=== PATIENT | male | born 1955 | race Caucasian/White ===

== ENCOUNTER 2016-09-04 10:32 | Emergency (ER) | payer MEDICARE, OTHER ==
--- NOTE | ~2016-09-04 | CR72 ---
[facility] A Service of [facility] RADIOLOGY TEXT RESULTS PATIENT: JESSICA CHRISTOPHER LOCATION: [facility] : 57 UNIT #: [id number] AGE: [address]: Aman Weldon MD SEX: M ORDER DR: [id number] [facility] [address] [place], [place] [address] [id number] MR#: [id number] #: [id number] NAME: JESSICA CHRISTOPHER : 1955 SEX: M STUDY DATE/TIME: 09/04/2016 09:49 UNIT: [facility] ROOM: STUDY DESCRIPTION: CR Chest Single View Portable Attending Physician: Aman Weldon M.D. Referring Physician: Self Referral-Refer Use Only Ordering Physician: Aman Weldon M.D. Primary Care Physician: Primary Care Physician No MEDICAL IMAGING REPORT This report is preliminary unless electronic signature is present EXAM Chest portable, 09/04/2016 09:49 hours HISTORY 61-year-old man complaining of 1 day history of shortness of air and fatigue. The patient took someone else's heart medication 1 day prior to exam. COMPARISON 05/06/2016 FINDINGS Portable upright chest demonstrates heart size at the upper limits of normal unchanged from 05/06/2016. There is a mildly tortuous atherosclerotic aorta without change. The pulmonary vascularity is normal. The lungs are clear and there are no effusions. IMPRESSION Stable mild prominence of the cardiac size with tortuous atherosclerotic aorta. Lungs are mildly hyperinflated but clear. There are no effusions. Dictated by... Tiffany Jones M.D. THIS IS AN ELECTRONICALLY VERIFIED REPORT Tiffany Jones M.D. at 09/04/2016 2:30 PM GRAYSON/rhina TD: 09/04/2016 12:30 JOB #: [id number] MEDICAL IMAGING REPORT Page 1 of 1 COPY
--- NOTE | ~2016-09-04 | EKG ---
PATIENT: JESSICA CHRISTOPHER UNIT #: [id number] Ventricular Rate: 108 BPM Atrial Rate: 216 BPM QRS Duration: 106 ms Q-T Interval: 314 ms QTC Calculation(Bezet): 420 ms P [place]: 262 degrees Calculated R [place]: -74 degrees Calculated T [place]: -17 degrees Diagnosis Line: Atrial flutter with 2:1 A-V conduction Diagnosis Line: Left axis deviation Diagnosis Line: Incomplete left bundle branch block Diagnosis Line: Left ventricular hypertrophy with repolarization Diagnosis Line: abnormality Diagnosis Line: Abnormal ECG Diagnosis Line: When compared with ECG of 06-MAY-2016 19:53, Diagnosis Line: Incomplete left bundle branch block has replaced Diagnosis Line: Incomplete right bundle branch block Diagnosis Line: Confirmed by ALEXANDRE VICTOR MD ([id number]) on 09/04/2016 Diagnosis Line: 9:44:38 AM INTERPRETING MD: KAYLEIGH MARTINO
[2016-09-04 09:56] LABS: BASOPHIL# 0.1 X10e3 (0-0.3); EOSINOPHIL# 0.9 X10e3 (0-0.7); EOSINOPHIL% 12.6 % (0.0-7.0); HEMATOCRIT 43.5 % (38.0-50.0); HEMOGLOBIN 14.2 gm/dL (13.0-16.0); LYMPHOCYTE# 2.2 X10e3 (1.0-3.5); LYMPHOCYTE% 31.6 % (17.0-45.0); MEAN CELL VOLUME 98.6 FL (83-96); MEAN CORPUSCULAR HEMOGLOBIN 32.2 PG (28-34); MEAN CORPUSCULAR HGB CONC 32.6 g/dL (30-36); MEAN PLATELET VOLUME 7.7 FL (6.5-11.5); MONOCYTE# 0.6 X10e3 (0-1.0); MONOCYTE% 9.2 % (3.0-12.0); NEUTROPHIL# 3.2 X10e3 (1.5-7.1); NEUTROPHIL% 45.6 % (40-75); PLATELET COUNT 194 X10e3 (140-420); RED BLOOD COUNT 4.41 X10e (3.90-5.60)
[2016-09-04 09:57] LABS: DIFF IND NO
[2016-09-04 10:04] LABS: POC - CKMB 1.4 ng/mL (0.0-7.9); POC - TROPONIN <0.05 ng/mL (<=0.05)
[2016-09-04 10:10] LABS: PROTHROMBIN TIME (PATIENT) 10.6 SECONDS (9.6-11.5)
[2016-09-04 10:21] LABS: ALBUMIN SERUM 4.2 g/dL (3.5-5.0); BILIRUBIN, DIRECT 0.1 mg/dL (0.0-0.2); BILIRUBIN,INDIRECT 0.4 mg/dL (0.0-0.9); BILIRUBIN,TOTAL 0.5 mg/dL (0.2-2.0); BUN/CREATININE RATIO 7.85; CALCIUM SERUM 9.1 mg/dL (8.4-10.2); CREATININE SERUM 1.4 mg/dL (0.6-1.4); GLOM FILT RATE Estimated 54.2 mL/min (>60); POTASSIUM 5.2 mmol/L (3.5-5.1); PROTEIN TOTAL SERUM 7.1 g/dL (6.0-8.3)
[~2016-09-04 10:32] MED LIST: ALBUTEROL17 GM INH; ALBUTEROL20 ml INH; ASPIRIN81 MG PO; BACTRIM DS TABL1 TA1 PO; CARDIZEM60 M1 PO; CARVEDILOL6.25 MG PO; COATED ASPIRIN325 M1 PO; CORDARONE200 M1 PO; COREG6.25 MG PO; COUMADIN PO; COUMADIN2.5 MG PO; COUMADIN5 MG PO; KEFLEX PO; KETOPROFEN PO; LASIX PO; LISINOPRIL20 MG PO; LISINOPRIL5 MG PO; LOPRESSOR PO; METOPROLOL TAR25 MG PO; METOPROLOL TART25 MG PO; MUCINEX DM ER1 EACH PO; MULTI VITAMINS W1 MG PO; NICOTINE TRANSD21 MG EXT; PRINIVIL10 MG PO; PROAIR HFA8.5 GM IH; PROTONIX PO; SPIRIVA18 MCG INH; SYMBICORT80 INH; THIAMINE HCL100 MG PO; TYLENOL325 M1 PO; VICODIN 5/500 T1 TAB PO; ZESTORETIC 10-1 EACH PO; ZESTORETIC 20/11 TAB PO; ZESTRIL10 M2 PO; ZESTRIL2.5 M1 PO
[2016-09-04 10:53] LABS: URINE SOURCE CLEAN CATCH
[2016-09-04 10:57] LABS: URINE APPEARANCE CLEAR; URINE BILIRUBIN NEG (NEG); URINE BLOOD NEG (NEG); URINE COLOR YELLOW; URINE GLUCOSE NEG (NEG); URINE KETONE NEG (NEG); URINE LEUKOCYTE ESTERASE NEG (NEG); URINE NITRATE NEG (NEG); URINE PROTEIN NEG (NEG); URINE SPECIFIC GRAVITY 1.004 (1.003-1.035); URINE UROBILINOGEN 0.2 MG/DL (NEG)
[2016-09-04 11:03] LABS: CULTURE INDICATED? NO
[2016-09-04 11:09] LABS: AMPHETAMINE NEG (NEG); BARBITURATES NEG (NEG); BENZODIAZEPINES NEG (NEG); COCAINE POS (NEG); MARIJUANA NEG (NEG); OPIATES NEG (NEG); TRICYCLIC ANTIDEPRESSANTS NEG (NEG); U METHADONE NEG (NEG)
[2016-09-04 11:11] LABS: POC - CKMB 1.5 ng/mL (0.0-7.9); POC - TROPONIN <0.05 ng/mL (<=0.05)
== END 2016-09-04 13:44 | disposition home or self-care (01) ==
LOC: CED 10:32
PROVIDERS: Emergency Medicine
DX: I48.92 Unspecified atrial flutter (principal); E87.6 Hypokalemia; I11.0 Hypertensive heart disease with heart failure; I50.9 Heart failure, unspecified; R53.1 Weakness; F17.200 Nicotine dependence, unspecified, uncomplicated; Z79.899 Other long term (current) drug therapy
CPT/HCPCS: 36415; 71010; 80048; 80076; 80307; 81003; 82553; 82947; 83880; 84484; 85025; 85610; 93005; 96374; 99284; J1940

== ENCOUNTER 2016-12-11 16:16 | Inpatient (IN) | payer MEDICARE, OTHER ==
[~2016-12-11] VITALS: Ht 172.7 cm; Wt 55.4 kg
--- NOTE | ~2016-12-11 | HP ---
Unit #: [id number] #: [id number] Patient: JESSICA LAWRENCE [id number] [address] [address] [id number] I MR#: [id number] NAME: JESSICA LAWRENCE ROOM: CICCU3 Age: 61 Sex: M Admission Date: 12/11/2016 : 1955 Attending Physician: Nelson Henriquez M.D. Referring Physician: Primary Care Physician No Primary Care Physician: Primary Care Physician No HISTORY AND PHYSICAL CHIEF COMPLAINT Nausea and vomiting. HISTORY OF PRESENT ILLNESS The patient is a 61-year-old male with history of nonischemic cardiomyopathy with ejection fraction of 10% to 15%, and history of paroxysmal atrial fibrillation, chronic COPD, chronic kidney disease, hypertension, noncompliance, and polysubstance abuse brought to the emergency room complaining of nausea and vomiting. The patient stated that the patient has been having nausea and vomiting for the last two weeks; however, it started with dizziness and gradually worsened to the point that he was unable to stand and that made him come to the emergency room. The patient drinks three to four beers every day, the last one was last night. The patient denies any shortness of breath. The patient denies any chest pain. PAST MEDICAL HISTORY 1. History of atrial fibrillation. 2. History of hypertension. 3. Chronic obstructive pulmonary disease. 4. Nonischemic cardiomyopathy. 5. Renal insufficiency. 6. Polysubstance abuse. 7. Noncompliance. PAST SURGICAL HISTORY 1. Right arm repair for fracture. 2. Cardioversion. 3. Cardiac catheterization. SOCIAL HISTORY The patient lives with his fiance for forty-two years. He smokes one fourth of pack per day and drinks beer, [id number] beers, and history of smoking marijuana, cocaine in the past. FAMILY HISTORY Reviewed and none. ALLERGIES No known drug allergies. HOME MEDICATIONS 1. Coumadin 2. Carvedilol Unit #: [id number] #: [id number] Patient: JESSICA LAWRENCE 3. Lisinopril 4. Lasix 5. Aspirin REVIEW OF SYSTEMS Positive for dizziness, positive for nausea and vomiting, denies any chest pain, all other systems have been reviewed and all other systems are negative. PHYSICAL EXAMINATION GENERAL: The patient is lying on the bed, not in acute distress. VITALS: Temperature 97.8, pulse rate 54, respiratory 20, and blood pressure 86/50, satting 97%. HEENT: Head: Atraumatic and normocephalic. Pupils equal, round, reactive to light and accommodation. Extraocular movements are intact. Dry mucous membranes. NECK: Supple. LUNGS: Decreased air entry at the bases. HEART: Regular rate and rhythm. Positive for murmur. ABDOMEN: Soft, positive bowel sounds. EXTREMITIES: No cyanosis, no clubbing. NEURO: Awake, alert, oriented, no gross focal motor deficit. DIAGNOSTIC STUDIES LABORATORY DATA: WBC 6.2, hemoglobin 11.2, hematocrit 32.4, platelets 163, and troponin is less than 0.05. Sodium was 119, potassium 5, chloride 88, bicarb 23, glucose 73, BUN 16, creatinine 1.9, AST 32, ALT 28, albumin 3.9, lipase 48. ASSESSMENT/PLAN 1. Dizziness. 2. Hyponatremia. 3. Alcohol intoxication. 4. Acute kidney injury. Plan to admit the patient to the telemetry, and continue with gentle IV fluids, D5 at 50 mL per hour for ten hours, and will ask for renal consult for hyponatremia, for cardiorenal syndrome, and CIWA protocol, and Zofran for nausea and vomiting, and further recommendations will follow. Dictated by Cassius Candelario/jcarlos TD: 12/12/2016 09:27 JOB #: [id number] Unit #: [id number] #: [id number] Patient: JESSICA LAWRENCE HISTORY AND PHYSICAL Page 1 of 1 X LORI PEOPLES MD HISTORY AND PHYSICAL
--- NOTE | ~2016-12-11 | EKG ---
PATIENT: JESSICA LAWRENCE UNIT #: [id number] Ventricular Rate: 125 BPM Atrial Rate: 148 BPM P-R Interval: 252 ms QRS Duration: 100 ms Q-T Interval: 314 ms QTC Calculation(Bezet): 453 ms P [place]: 17 degrees Calculated R [place]: -42 degrees Calculated T [place]: -59 degrees Diagnosis Line: Atrial flutter with 2 to 1 block Diagnosis Line: Left axis deviation Diagnosis Line: Abnormal ECG Diagnosis Line: When compared with ECG of 12-DEC-2016 02:36, Diagnosis Line: (unconfirmed) Diagnosis Line: Significant changes have occurred Diagnosis Line: Confirmed by TERRENCE MORALES MD ([id number]) on 12/12/2016 Diagnosis Line: 7:18:40 PM INTERPRETING MD: CARMEN MARTINO
--- NOTE | ~2016-12-11 | CR2 ---
[facility] A Service of [facility] RADIOLOGY TEXT RESULTS PATIENT: JESSICA LAWRENCE LOCATION: [address] : [birth year] UNIT #: [id number] AGE: [address]: CATHIE FUENTESUJ V SEX: M ORDER DR: [id number] [facility] [address] [place], [place] [address] [id number] I MR#: [id number] Acc #: [id number] NAME: JESSICA LAWRENCE : 1955 SEX: M STUDY DATE/TIME: 12/11/2016 17:02 UNIT: [facility] ROOM: [facility] STUDY DESCRIPTION: CR Abdomen Acute Series Attending Physician: Duglas Scott M.D. Referring Physician: No Primary Care Physician Ordering Physician: Jairo Johnson M.D. Primary Care Physician: No Primary Care Physician MEDICAL IMAGING REPORT This report is preliminary unless electronic signature is present EXAM Acute abdomen series, 12/11/2016, 1702 hours. HISTORY 61-year-old man with complaint of nausea, vomiting and diarrhea beginning 2 weeks ago. COMPARISON Chest film, 09/04/2016. FINDINGS Portable upright chest demonstrates normal cardiac, mediastinal and hilar contours. The lungs are hyperinflated, but clear. There is no effusion. No free air seen in the abdomen. Supine and upright views of the abdomen demonstrate a nonspecific bowel gas pattern. There is no obstruction. No free air or suspicious calcifications. There is moderate stool in the rectum. IMPRESSION 1. Pulmonary hyperinflation with clear lungs. 2. No evidence of bowel obstruction or distension. No free air or suspicious calcifications. There is moderate stool in the rectum. Dictated by... Tiffany Jones M.D. THIS IS AN ELECTRONICALLY VERIFIED REPORT Tiffany Jones M.D. at 12/12/2016 9:08 AM GRAYSON/poppy TD: 12/12/2016 06:47 JOB #: [id number] [facility] A Service of [facility] RADIOLOGY TEXT RESULTS PATIENT: JESSICA LAWRENCE LOCATION: [facility] CICCU3-17 : 57 UNIT #: [id number] AGE: [address]: ALFREDOPEDRO V SEX: M ORDER DR: MEDICAL IMAGING REPORT Page 1 of 1 COPY
--- NOTE | ~2016-12-11 | DS ---
Unit #: [id number] #: [id number] Patient: JESSICA LAWRENCE [id number] [place], [place] [address] [id number] I MR#: [id number] NAME: JESSICA LAWRENCE ROOM: 564 Age: 61 Sex: M Admission Date: 12/11/2016 : 1955 Discharge Date: 12/14/2016 Attending Physician: Nelson Henriquez M.D. Referring Physician: No Primary Care Physician Primary Care Physician: No Primary Care Physician DISCHARGE SUMMARY REASON FOR ADMISSION Nausea and vomiting. HISTORY OF PRESENT ILLNESS/HOSPITAL COURSE The patient is a 61-year-old male with underlying history of nonischemic cardiomyopathy, ejection fraction 10%-15%, paroxysmal atrial fibrillation, chronic obstructive pulmonary disease, endstage chronic kidney disease, hypertension, longstanding history of noncompliance, polysubstance abuse as well as alcohol abuse. The patient presented with symptoms of nausea and vomiting. Please refer to history and physical for complete details. In regard to the same, consultation was placed to Dr. Holman and associates for evaluation. The patient's medications were adjusted appropriately. In regard to the patient's longstanding history of alcohol abuse, he was initially placed on CIWA protocol, which prompted ICU placement. He was gradually transitioned to telemetry floor. There were no acute events noted. He did have significant hyponatremia on day of admission, likely secondary to underlying alcohol abuse. Sodium was initially noted to be 119. Renal consultation was obtained. Through fluid restriction as well as appropriate medications as directed by [facility], the patient's sodium today currently stands at 128, likely representing his baseline. At this point in time the patient is clinically stable for discharge. Overall his prognosis is poor. He has been instructed to follow with Dr. Holman of cardiology services in the next four to six weeks. He has a longstanding history of noncompliance as well as alcoholism. With is diminished ejection fraction, questionable compliance issues as well as alcohol abuse, chance of readmission is significantly elevated and his prognosis is poor. FINAL DISCHARGE DIAGNOSES 1. Intractable nausea and vomiting, likely mixed etiology secondary to viral gastroenteritis, alcohol abuse. 2. Nonischemic cardiomyopathy with noted ejection fraction of 10%-15%. 3. Paroxysmal atrial fibrillation. 4. Chronic anticoagulation. 5. Chronic obstructive pulmonary disease with ongoing tobacco abuse. 6. Alcohol abuse. 7. Chronic kidney disease. 8. Hyponatremia. Likely secondary to alcohol abuse. 9. Hypertension. Unit #: [id number] #: [id number] Patient: JESSICA LAWRENCE 10. Prior history of polysubstance abuse with cocaine. 11. Longstanding history of noncompliance. FINAL DISCHARGE MEDICATIONS 1. Coumadin 2.5 mg p.o. daily. 2. Lopressor 12.5 mg p.o. b.i.d. DISCHARGE CONDITION Stable. DISPOSITION Home. [facility] to follow at the time of discharge. Dictated by... Cassius Maxwell/jeyson TD: 12/16/2016 09:28 JOB #: [id number] DISCHARGE SUMMARY Page 1 of 1 X Jass Tirado MD X DISCHARGE SUMMARY
--- NOTE | ~2016-12-11 | EKG ---
PATIENT: JESSICA LAWRENCE UNIT #: [id number] Ventricular Rate: 61 BPM Atrial Rate: 241 BPM QRS Duration: 92 ms Q-T Interval: 400 ms QTC Calculation(Bezet): 402 ms P [place]: 70 degrees Calculated R [place]: 99 degrees Calculated T [place]: 25 degrees Diagnosis Line: Atrial flutter with variable A-V block Diagnosis Line: Rightward axis Diagnosis Line: Abnormal ECG Diagnosis Line: Diagnosis Line: Confirmed by TERRENCE MORALES MD ([id number]) on 12/12/2016 Diagnosis Line: 7:12:16 PM INTERPRETING MD: CARMEN MARTINO
--- NOTE | ~2016-12-11 | EKG ---
PATIENT: JESSICA LAWRENCE UNIT #: [id number] Ventricular Rate: 49 BPM Atrial Rate: 241 BPM QRS Duration: 118 ms Q-T Interval: 442 ms QTC Calculation(Bezet): 399 ms P [place]: 78 degrees Calculated R [place]: -31 degrees Calculated T [place]: 58 degrees Diagnosis Line: Atrial flutter Diagnosis Line: Left axis deviation Diagnosis Line: Incomplete right bundle branch block Diagnosis Line: Nonspecific ST abnormality Diagnosis Line: Abnormal ECG Diagnosis Line: When compared with ECG of 11-DEC-2016 16:52, Diagnosis Line: (unconfirmed) Diagnosis Line: Incomplete right bundle branch block is now Diagnosis Line: Present Diagnosis Line: ST no longer depressed in Inferior leads Diagnosis Line: Confirmed by TERRENCE MORALES MD ([id number]) on 12/12/2016 Diagnosis Line: 7:18:02 PM INTERPRETING MD: CARMEN MARTINO
--- NOTE | ~2016-12-11 | CO ---
Unit #: [id number] #: [id number] Patient: JESSICA LAWRENCE [id number] [facility] [address] [place], [place] [address] [id number] I MR#: [id number] NAME: JSESICA LAWRENCE ROOM: 564 Age: 61 Sex: M Admission Date: 12/11/2016 : 1955 Attending Physician: Nelson Henriquez M.D. Primary Care Physician: Primary Care Physician No CONSULTATION REPORT HISTORY OF PRESENT ILLNESS This is a 61-year-old white male, who is well known to our practice. He is here for multiple admissions. He has cardiomyopathy with his last echo indicating 10% to 15% on his LVEF. He has moderate mitral regurgitation and moderate tricuspid regurgitation. His last catheterization back in 2013 showed a 30% stenosis in the LAD, otherwise unremarkable. He is in permanent atrial fibrillation and atrial flutter. He is on Coumadin. He has chronic kidney disease, COPD. He has polysubstance abuse. Uses cocaine occasionally and alcohol and nicotine abuse. The patient came in with nausea, vomiting, and having some diarrhea. He said that is persistently worsening over the last 2 weeks. He also a couple of days before admission, started feeling lightheaded and dizzy when he gets up. He also mentioned that he ran out of his medication and wants to get them refilled. He says that he has been having some diarrhea, but that is eased off and he said he just had not been eating well, that every time he eats, he feels real sick to his stomach and dry heaves. He denies any chest pain; pain in his neck, bilateral jaws, shoulders, arms, or elbow. He denies any palpitations. He does complain of dizziness, but denies any presyncope or syncope. He says the nausea as mentioned persistently worsening. He has not had any palpitations. He admits to doing cocaine a few days ago and he continues to drink 4 to 5 beers a day and he continues to smoke. He says he tries to be compliant with his medication, but did run out yesterday. He has been noncompliant with followup. He is seeing Dr. Holman in the office. In the emergency room, the patient's blood pressure was found to be 86/59, heart rate 54, respirations 18, temperature 97.8, O2 saturation was 97% on room air. His EKG shows atrial flutter with a ventricular rate 49 beats per minute. He has an incomplete right bundle-branch block and nonspecific changes. He was also found by his labs to have severe hyponatremia. His sodium was 119. Initially, his potassium was 5.0, but peaked as high as 6.2. He had some slow ventricular pauses. Because of his hypotension and hyponatremia and slow atrial flutter, he was transferred to the unit for further management. Nephrology has been consulted. He has been given normal saline fluids and he has been given Kayexalate and calcium gluconate along with some IV Lasix and some D50, dextrose. His latest potassium level is now down to 3.8. The patient's cardiac enzymes are negative. The patient was admitted for further evaluation and management. Cardiology was consulted. Unit #: [id number] #: [id number] Patient: JESSICA LAWRENCE PAST MEDICAL HISTORY 1. Chronic systolic congestive heart failure, 03/2016, LVEF of 10% to 15%. Moderate mitral regurgitation, moderate tricuspid regurgitation. 2. In 2013, cardiac cath shows 30% stenosis in the LAD after the second diagonal branch and normal circumflex and left main normal and RCA normal. 3. History of DC cardioversion, persistent atrial fib/flutter, is on Coumadin. 4. Chronic kidney disease. 5. Hypertension. 6. COPD. 7. In 03/2016, EGD shows multiple gastric ulcers and severe gastroduodenitis. 8. History of polysubstance abuse, cocaine. 9. Nicotine abuse. 10. Alcohol abuse. PAST SURGICAL HISTORY Right arm surgery for repair of fracture. HOME MEDICATIONS These are listed, but he said he ran out some of them yesterday. Lisinopril 20 mg one tablet p.o. daily, Coumadin 2.5 mg p.o. daily, metoprolol 25 mg p.o. b.i.d., furosemide 40 mg p.o. daily. ALLERGIES No known drug allergies. SOCIAL HISTORY The patient lives with his family, his girlfriend. He continues to smoke half a pack of cigarettes a day. He drinks anywhere from 3 to 6 beers a day. He used cocaine last week. He denies heroin or any other illicit drug abuse. FAMILY HISTORY Negative for CAD. REVIEW OF SYSTEMS See details in HPI. PHYSICAL EXAMINATION GENERAL: Mr. Lawrence is a 61-year-old white male, in no acute respiratory distress. He is awake, alert, and answers questions appropriately. VITAL SIGNS: Currently, blood pressure is 119/83, prior he was 92/65; heart rate 66; respirations 18; temperature 97.8, O2 saturations 100% on 2 L. NECK: Trachea midline. No thyromegaly or lymphadenopathy. Normal carotid upstrokes. No jugular venous distention. HEART: S1 and S2. Irregular rate and rhythm. No clicks, murmurs, or rubs. Soft systolic murmur at the left sternal border. LUNGS: Very diminished, otherwise clear. ABDOMEN: Flat, soft, tender with palpating the lower quadrant area. EXTREMITIES: Pedal pulses are palpable. No pedal edema. DIAGNOSTIC STUDIES LABORATORY RESULTS: Glucose is 104, BUN 18, creatinine 1.3, eGFR is 59.3. Sodium 127, potassium 3.6 today, chloride is 92, CO2 of 27, uric acid 4.5, calcium is 8.8, total protein 6.0, albumin 3.9, bilirubin total 0.3, AST Unit #: [id number] #: [id number] Patient: MELINDAJESSICA 32, ALT 28, alkaline phosphatase is 68, lipase is 48. TSH is 0.93. Alcohol level on admission 33. INR is 3.5. WBCs 10.5, hemoglobin 11.3, hematocrit 33.4, and platelets is 166. Urine tox screen positive for cocaine. Urinalysis; 0.2 urobilinogen. Cardiac enzymes; CK-MB is 1.1 with troponin less than 0.05. This morning CK 69. IMAGING STUDIES: x-ray of acute abdomen series shows pulmonary hyperventilation with clear lungs. No evidence of bowel obstruction or distention. CARDIOVASCULAR STUDIES: EKG shows atrial flutter with ventricular rate 49 beats per minute, incomplete right bundle-branch block, left axis deviation, poor R-wave progression. IMPRESSION 1. Weakness and dizzy. 2. Hypotension. 3. Severe hyponatremia. 4. Abdominal pain with nausea, vomiting, and some diarrhea. 5. Atrial flutter with a slow ventricular response. 6. Chronic systolic congestive heart failure, LVEF of 10% to 15% with moderate mitral regurgitation, moderate tricuspid regurgitation. 7. Nonobstructive coronary artery disease. 8. History of direct current cardioversion in the past. Has permanent atrial fibrillation/flutter. 9. Chronic kidney disease. 10. Hypertension, now hypotension. 11. Chronic obstructive pulmonary disease. 12. Multiple gastric ulcers on last esophagogastroduodenoscopy, 03/2016. 13. Polysubstance abuse, cocaine. 14. Nicotine abuse. 15. Alcohol abuse. PLAN 1. Cardiology consult to assist with evaluation and management. 2. We will hold all heart failure medications right now, because of his hypotension. No EMILY inhibitor or ARB for his cardiomyopathy, because of hypotension. May be able to restart some of his medications tomorrow once his blood pressure stabilizes. The patient has some IV fluids for his hypotension and correction of his hyponatremia. He was treated for hyperkalemia per protocol. His sodium is improved to 127, and his potassium is now 3.8. 3. Speech and Swallow is going to evaluate the patient because he says he is even having difficulty swallowing. 4. We encouraged him to quit alcohol, drug, and nicotine abuse. 5. Smoking cessation information provided to the patient and has offered the patient some counseling for his alcohol and cocaine abuse. 6. We will hold his Coumadin today as INR last night was 3.4, we will check in the morning. 7. Since he has had lot of fluids so far, and his sodium and his potassium are stable, we will stop the IV fluids to avoid any overload with his known history of LVEF of 10% to 15%. 8. On exam, there are no signs or symptoms of acute congestive heart failure or unstable angina. Thank you very much for allowing us to assist in his care. Further recommendations pending per Dr. Holman. Unit #: [id number] #: [id number] Patient: JESSICA LAWRENEC Dictated by... Constance Mittal/stephonl TD: 12/13/2016 11:36 JOB #: [id number] CONSULTATION REPORT Page 1 of 1 X Gela Andrew APRN X CONSULTATION REPORT
--- NOTE | ~2016-12-11 | A ---
[facility] Nutrition Therapy DATE: 12/12/16 Patient: JESSICA LAWRENCE Physician: SHIRA Address: [address] [facility] Room/Bed: [address], Zip: [place] [address] Admit Date: 12/11/16 Date of : 57 Height: 5 8 Weight: 116 53 NUTRITIONAL ASSESSMENT: REASON: Low BMI 61 yo male admitted for nausea, vomiting PMH: CHF, Afib, COPD, CKD, HTN, EtOH and polysubstance abuse, EF 10-15%, cardiomyopathy, gastric ulcers Anthropometrics: Ht: 5'8" Wt: 54.8 kg BMI: 18.4 IBW: 70 kg, 78% IBW Labs: Na+ 125 Cl- 90 Gluc 52 Creat 1.6 GFR 46.2 Meds: Therapeutic formula, phenergan, loperamide, zofran I/O & Bowel function: 978/2550, last BM 12/11 Skin Integrity: Callous left inner thigh/ foot No edema noted Estimated Nutrition Needs: Increased due to low body weight Diet: Heart healthy/ low K+ Assessment: Chart reviewed, events noted. 61 yo male admitted for n/v. RDs at [facility] have seen the pt multiple times in the past for low body weight. Per previous admission RD assessment, the pt weighed ~110# in May 2016. Pt's current weight is ~120# per standing scale weight from yesterday. RD spoke with the pt at bedside. Pt reports poor intake d/t poor dentition, trouble swallowing and vomiting after eating. Pt does report that his intake improves at the hospital (50% meals), because he does not have to buy the foods, and there are more soft choices. DATA INTEGRITY ANALYST has been consulted. Of note, the pt has h/o gastric ulcers. RD provided extensive diet education on budget-friendly high protein-high calorie soft food options. Pt's family states that they will assist him with buying nutritional supplements, as they have been concerned with his poor intake. Pt requested information on how to "get new teeth". RD discussed this with the oncology social worker, who is already on the case. Pt is agreeable to Magic Cup and Ensure supplements. RD will order. Dx: Moderate protein-calorie malnutrition RT poor dentition, difficulty swallowing, food insecurity AEB pt and family report of minimal intake (<50% estimated needs), 78% IBW, BMI 18.4, protruding clavicle and shoulder bones, hallowing of the temporal region. Intervention: [facility] Nutrition Therapy DATE: 12/12/16 Patient: JESSICA LAWRENCE Physician: SHIRA Address: [address] [place] [address] Room/Bed: [address], Zip: [place] [address] Admit Date: 12/11/16 Date of : 57 Height: 5 8 Weight: 116 53 1. DATA INTEGRITY ANALYST 2. Social work consult 3. Liberalize diet as appropriate, adding 6 small meals 4. Ordered supplements below Monitoring, Evaluation and Goals: 1. Oral intake; consume 50-100% of meals and supplements as toleated 2. Improve labs; Na+, glucose, GFR 3. Weight; promote gradual weight gain, prevent weight loss Recommendations: 1. Recommend DATA INTEGRITY ANALYST evaluation d/t the pt's difficulty swallowing (already ordered). 2. Consider GI consult d/t the pt's h/o gastric ulcers and trouble swallowing. 3. community organization worker to see patient for poor dentition (already following). 4. Ensure compact TID and Magic Cup BID for supplemental nutrition. 5. Please add 6 small meals to current diet order. Recommend changing from HH/low K+ to 2 gram Na+/ low K+, as the pt does not require the fat restriction on the HH diet. Pt is at moderate nutritional risk. RD will follow up per protocol. Respectfully, GRISELDA CABRERA, CALIN, LD [employer] and Nutrition[employer] [facility] cc: client file
[2016-12-11 17:25] LABS: BASOPHIL# 0.1 X10e3 (0-0.3); EOSINOPHIL# 0.3 X10e3 (0-0.7); EOSINOPHIL% 4.7 % (0.0-7.0); HEMATOCRIT 32.4 % (38.0-50.0); HEMOGLOBIN 11.2 gm/dL (13.0-16.0); LYMPHOCYTE# 1.8 X10e3 (1.0-3.5); LYMPHOCYTE% 28.3 % (17.0-45.0); MEAN CELL VOLUME 92.1 FL (83-96); MEAN CORPUSCULAR HEMOGLOBIN 31.9 PG (28-34); MEAN CORPUSCULAR HGB CONC 34.7 g/dL (30-36); MONOCYTE# 0.7 X10e3 (0-1.0); MONOCYTE% 11.1 % (3.0-12.0); NEUTROPHIL# 3.4 X10e3 (1.5-7.1); NEUTROPHIL% 54.9 % (40-75); PLATELET COUNT 163 X10e3 (140-420); RED BLOOD COUNT 3.52 X10e (3.90-5.60); RED CELL DISTRIBUTION WIDTH 13.8 % (11.0-15.5); WHITE BLOOD COUNT 6.2 X10e3 (4.0-10.5)
[2016-12-11 17:27] LABS: DIFF IND NO
[2016-12-11 17:37] LABS: POC - CKMB 1.1 ng/mL (0.0-7.9); POC - TROPONIN <0.05 ng/mL (<=0.05)
[2016-12-11 17:49] LABS: ALBUMIN SERUM 3.9 g/dL (3.5-5.0); BILIRUBIN, DIRECT 0.1 mg/dL (0.0-0.2); BILIRUBIN,INDIRECT 0.2 mg/dL (0.0-0.9); BILIRUBIN,TOTAL 0.3 mg/dL (0.2-2.0); BUN/CREATININE RATIO 8.42; CALCIUM SERUM 8.6 mg/dL (8.4-10.2); CREATININE SERUM 1.9 mg/dL (0.6-1.4); GLOM FILT RATE Estimated 37.5 mL/min (>60)
[2016-12-11 18:30] LABS: URINE SOURCE CLEAN CATCH
[2016-12-11 18:52] LABS: AMPHETAMINE NEG (NEG); BARBITURATES NEG (NEG); BENZODIAZEPINES NEG (NEG); COCAINE POS (NEG); MARIJUANA NEG (NEG); OPIATES NEG (NEG); TRICYCLIC ANTIDEPRESSANTS NEG (NEG); U METHADONE NEG (NEG)
[2016-12-11 19:18] LABS: URINE APPEARANCE CLEAR; URINE BILIRUBIN NEG (NEG); URINE BLOOD NEG (NEG); URINE COLOR YELLOW; URINE GLUCOSE NEG (NEG); URINE KETONE NEG (NEG); URINE LEUKOCYTE ESTERASE NEG (NEG); URINE NITRATE NEG (NEG); URINE PROTEIN NEG (NEG); URINE SPECIFIC GRAVITY 1.007 (1.003-1.035); URINE UROBILINOGEN 0.2 MG/DL (NEG)
[2016-12-11 19:27] LABS: CULTURE INDICATED? NO
[2016-12-11 20:15] LABS: INR 3.5; PARTIAL THROMBOPLASTIN TIME 51.9 SECONDS (23.5-31.3); PROTHROMBIN TIME (PATIENT) 37.8 SECONDS (10.0-11.7)
[2016-12-11 20:21] LABS: POTASSIUM,URINE RANDOM 26 mmol/L; SODIUM URINE RANDOM <10 mmol/L
[2016-12-11 20:31] LABS: INR 3.4; PARTIAL THROMBOPLASTIN TIME 51.5 SECONDS (23.5-31.3); PROTHROMBIN TIME (PATIENT) 36.6 SECONDS (10.0-11.7)
[2016-12-11 20:38] LABS: THYROID STIMULATING HORMONE 0.93 uIU/ml (0.34-5.60)
[2016-12-11 20:45] LABS: FREE THYROXIN (T4) 0.85 ng/dL (0.58-1.64)
[2016-12-11 23:11] LABS: BUN/CREATININE RATIO 12.35; CALCIUM SERUM 8.6 mg/dL (8.4-10.2); CREATININE SERUM 1.7 mg/dL (0.6-1.4); GLOM FILT RATE Estimated 42.9 mL/min (>60)
[2016-12-11 23:16] LABS: POTASSIUM 5.8 mmol/L (3.5-5.1)
[2016-12-12 01:56] LABS: BUN/CREATININE RATIO 12.94; CALCIUM SERUM 8.7 mg/dL (8.4-10.2); CREATININE SERUM 1.7 mg/dL (0.6-1.4); GLOM FILT RATE Estimated 42.9 mL/min (>60)
[2016-12-12 01:58] LABS: POTASSIUM 6.2 mmol/L (3.5-5.1)
[2016-12-12 05:30] LABS: BASOPHIL# 0.1 X10e3 (0-0.3); BASOPHIL% 0.5 % (0-2.5); EOSINOPHIL# 0.4 X10e3 (0-0.7); EOSINOPHIL% 3.7 % (0.0-7.0); HEMATOCRIT 33.4 % (38.0-50.0); HEMOGLOBIN 11.3 gm/dL (13.0-16.0); LYMPHOCYTE# 3.5 X10e3 (1.0-3.5); LYMPHOCYTE% 33.7 % (17.0-45.0); MEAN CELL VOLUME 93.1 FL (83-96); MEAN CORPUSCULAR HEMOGLOBIN 31.6 PG (28-34); MEAN PLATELET VOLUME 7.9 FL (6.5-11.5); MONOCYTE# 1.3 X10e3 (0-1.0); MONOCYTE% 12.9 % (3.0-12.0); NEUTROPHIL# 5.1 X10e3 (1.5-7.1); NEUTROPHIL% 49.2 % (40-75); PLATELET COUNT 166 X10e3 (140-420); RED BLOOD COUNT 3.59 X10e (3.90-5.60); RED CELL DISTRIBUTION WIDTH 13.6 % (11.0-15.5)
[2016-12-12 05:31] LABS: WHITE BLOOD COUNT 10.5 X10e3 (4.0-10.5)
[2016-12-12 05:32] LABS: DIFF IND NO
[2016-12-12 05:59] LABS: BUN/CREATININE RATIO 13.12; CALCIUM SERUM 9.2 mg/dL (8.4-10.2); CREATININE SERUM 1.6 mg/dL (0.6-1.4); GLOM FILT RATE Estimated 46.2 mL/min (>60)
[2016-12-12 06:03] LABS: POTASSIUM 3.8 mmol/L (3.5-5.1)
[2016-12-12] MEDS ORDERED: LISINOPRIL20 MG PO (12:38)
[2016-12-12] MEDS ORDERED: COUMADIN2.5 MG PO (12:38)
[2016-12-12] MEDS ORDERED: FUROSEMIDE40 MG PO (12:39)
[2016-12-12] MEDS ORDERED: METOPROLOL TAR25 MG PO (12:39)
[2016-12-12 13:11] LABS: BUN/CREATININE RATIO 13.84; CALCIUM SERUM 8.8 mg/dL (8.4-10.2); CREATININE SERUM 1.3 mg/dL (0.6-1.4); GLOM FILT RATE Estimated 59.3 mL/min (>60); POTASSIUM 3.6 mmol/L (3.5-5.1)
[2016-12-12 19:33] LABS: BUN/CREATININE RATIO 16.42; CALCIUM SERUM 8.7 mg/dL (8.4-10.2); CREATININE SERUM 1.4 mg/dL (0.6-1.4); GLOM FILT RATE Estimated 54.2 mL/min (>60); POTASSIUM 4.9 mmol/L (3.5-5.1)
[2016-12-13 06:14] LABS: BASOPHIL# 0.1 X10e3 (0-0.3); BASOPHIL% 0.8 % (0-2.5); EOSINOPHIL# 0.2 X10e3 (0-0.7); EOSINOPHIL% 3.6 % (0.0-7.0); HEMATOCRIT 30.4 % (38.0-50.0); HEMOGLOBIN 10.7 gm/dL (13.0-16.0); LYMPHOCYTE# 1.6 X10e3 (1.0-3.5); LYMPHOCYTE% 23.4 % (17.0-45.0); MEAN CELL VOLUME 91.9 FL (83-96); MEAN CORPUSCULAR HEMOGLOBIN 32.3 PG (28-34); MEAN CORPUSCULAR HGB CONC 35.2 g/dL (30-36); MEAN PLATELET VOLUME 7.7 FL (6.5-11.5); MONOCYTE# 0.8 X10e3 (0-1.0); MONOCYTE% 12.2 % (3.0-12.0); PLATELET COUNT 136 X10e3 (140-420); RED CELL DISTRIBUTION WIDTH 13.8 % (11.0-15.5); WHITE BLOOD COUNT 6.6 X10e3 (4.0-10.5)
[2016-12-13 06:29] LABS: DIFF IND NO
[2016-12-13 06:36] LABS: INR 1.5; PROTHROMBIN TIME (PATIENT) 16.6 SECONDS (10.0-11.7)
[2016-12-13 06:58] LABS: BUN/CREATININE RATIO 15.83; CALCIUM SERUM 8.9 mg/dL (8.4-10.2); CREATININE SERUM 1.2 mg/dL (0.6-1.4); GLOM FILT RATE Estimated 65.4 mL/min (>60); POTASSIUM 4.3 mmol/L (3.5-5.1)
[2016-12-13 12:36] LABS: BUN/CREATININE RATIO 11.53; CREATININE SERUM 1.3 mg/dL (0.6-1.4); GLOM FILT RATE Estimated 59.3 mL/min (>60); POTASSIUM 4.7 mmol/L (3.5-5.1)
[2016-12-13 18:19] LABS: INR 1.2; PROTHROMBIN TIME (PATIENT) 12.7 SECONDS (10.0-11.7)
[2016-12-13 18:27] LABS: BUN/CREATININE RATIO 12.5; CREATININE SERUM 1.2 mg/dL (0.6-1.4); GLOM FILT RATE Estimated 65.4 mL/min (>60); POTASSIUM 4.2 mmol/L (3.5-5.1)
[2016-12-13 21:10] LABS: BUN/CREATININE RATIO 12.72; CALCIUM SERUM 8.6 mg/dL (8.4-10.2); CREATININE SERUM 1.1 mg/dL (0.6-1.4); GLOM FILT RATE Estimated 72.6 mL/min (>60); POTASSIUM 4.1 mmol/L (3.5-5.1)
[2016-12-14 06:40] LABS: BUN/CREATININE RATIO 11.81; CALCIUM SERUM 8.6 mg/dL (8.4-10.2); CREATININE SERUM 1.1 mg/dL (0.6-1.4); GLOM FILT RATE Estimated 72.6 mL/min (>60); POTASSIUM 4.5 mmol/L (3.5-5.1)
[2016-12-14 08:36] LABS: INR 1.1
[2016-12-14] MEDS ORDERED: TYLENOL325 M1 PO (10:40)
[2016-12-14] MEDS ORDERED: LOPRESSOR PO (10:47)
== END 2016-12-14 11:41 | disposition home or self-care (01) | DRG 391 ==
LOC: CED 16:16 → CEDOF 18:50 → CED 19:33 → C5C 20:42 → CEDOF 20:42 → C5C 12-12 03:30 → CICCU3 12-12 03:30 → C5C 12-12 15:11
PROVIDERS: Emergency Medicine; Internal Medicine; Internal Medicine Cardiovascular Disease; Internal Medicine Nephrology; Nurse Practitioner
DX: A08.4 Viral intestinal infection, unspecified (principal); I50.23 Acute on chronic systolic (congestive) heart failure; I42.8 Other cardiomyopathies; N17.9 Acute kidney failure, unspecified; E87.1 Hypo-osmolality and hyponatremia; E44.1 Mild protein-calorie malnutrition; N18.3 Chronic kidney disease, stage 3 (moderate); E87.5 Hyperkalemia; I13.2 Hypertensive heart and chronic kidney disease with heart failure and with stage 5 chronic kidney disease, or end stage renal disease; Z68.1 Body mass index [BMI] 19.9 or less, adult; I08.1 Rheumatic disorders of both mitral and tricuspid valves; I48.2 Chronic atrial fibrillation; Z79.01 Long term (current) use of anticoagulants; J44.9 Chronic obstructive pulmonary disease, unspecified; F17.210 Nicotine dependence, cigarettes, uncomplicated; F10.129 Alcohol abuse with intoxication, unspecified; Y90.1 Blood alcohol level of 20-39 mg/100 ml; Z91.19 Patient's noncompliance with other medical treatment and regimen; R42 Dizziness and giddiness
CPT/HCPCS: 36415; 74022; 74230; 80048; 80076; 80307; 81003; 82436; 82533; 82550; 82553; 82947; 83690; 83735; 83930; 83935; 84133; 84300; 84439; 84443; 84484; 84550; 85025; 85610; 85730; 86592; 92610; 92611; 93005; 96374; 99285; G0480; G8996-GN; G8997-GN; J0610; J1650; J1940; J2405; J3411; J7042